=== PATIENT | male | born 1985 | race Caucasian/White ===

== ENCOUNTER 2018-05-02 19:26 | Emergency (ER) | payer OTHER ==
[2018-05-02 19:41] VITALS: BP 139/90; PULSE 103; TEMP 99.1; BMI 25.8
--- NOTE | 2018-05-02 20:36 | PDOC ---
History of Present Illness - General Chief Complaint: Redness To Affected Area Stated Complaint: BULLS EYE RASH ON BACK Time Seen by Provider: 05/02/18 19:36 - History of Present Illness Initial Comments: This otherwise healthy 33-year-old man presents with several day history of rash mid lower back and 3 day history of fever with myalgias. Patient was seen in urgent care yesterday and given Keflex with diagnosis of cellulitis. He presents because of continued symptoms. Patient does not recall any embedded tick or insect bite. He [place] in [place] and spends time outside. No history of Lyme disease or other tickborne illness. No recent travel. He has no known ALLERGIES Past History - Past Medical History Allergies/Adverse Reactions: Allergies Allergy/AdvReac Type Severity Reaction Status Date / Time No Known Allergies Allergy Verified 05/02/18 19:35 Home Medications: Ambulatory Orders Cephalexin [Keflex] 500 mg PO TID 05/02/18 Doxycycline Hyclate 100 mg PO BID #20 capsule 05/02/18 COPD: No - Suicide/Smoking/Psychosocial Hx Smoking History: Never smoked Hx Alcohol Use: Yes (OCCASIONAL) Drug/Substance Use Hx: No Substance Use Type: None Review of Systems - Review of Systems Able to Perform ROS?: Yes Comments:: 12 point review of systems is negative except for what is noted in the history of present illness *Physical Exam - Vital Signs Last Vital Signs Temp Pulse Resp BP Pulse Ox 99.1 F 103 H 16 139/90 99 05/02/18 19:34 05/02/18 19:34 05/02/18 19:34 05/02/18 19:34 05/02/18 19:34 - Physical Exam Comments: GENERAL: Adult male, alert and oriented 3, in no acute distress HEAD: Normal with no signs of trauma. EYES: PERRLA, EOMI, sclera anicteric, conjunctiva clear. ENT: Ears normal, nares patent, oropharynx clear without exudates. Dry mucous membranes. NECK: Normal range of motion, supple without lymphadenopathy, JVD, or masses. LUNGS: Breath sounds equal, clear to auscultation bilaterally. No wheezes, and no crackles. HEART:Regular rate and rhythm, normal S1 and S2 without murmur, rub or gallop. ABDOMEN:.normal bowel sounds No guarding,tenderness or rebound.No masses No distention. EXTREMITIES: Normal range of motion, no edema. No clubbing or cyanosis. No erythema, or tenderness. NEUROLOGICAL: Cranial nerves II through XII grossly intact. Normal speech. No focal neurological deficits. MUSCULOSKELETAL: Back non-tender to palpation, no CVA tenderness SKIN: 10 cm x 8 cm oval, erythematous, slightly raised lesion of the midline lower lumbar region; no vesicles or eschar noted No other rash seen ED Treatment Course - LABORATORY CBC & Chemistry Diagram: 05/02/18 20:45 05/02/18 20:45 Medical Decision Making - Medical Decision Making Because this patient clearly has ECM and febrile illness consistent with early tickborne disease, CBC/chemistry profile were examined to explore whether evidence of WBC or platelet abnormalities/aminotransferase elevation, suggesting erhlichiosus or babesiosis is present. Also, patient will get a liter of normal saline (he appears somewhat dehydrated on clinical exam) and 30 mg Toradol IV. CBC/chemistry profile is essentially normal except for elevation of hematocrit/ hemoglobin. Patient feels better after liter of normal saline and 30 mg of Toradol IV. Patient will be given doxycycline 100 mg by mouth now and prescription for doxycycline 100 mg twice a day for 10 days sent to his pharmacy. Patient should follow-up with his general doctor within the next 2-3 days. 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) - Discharge Dispostion Disposition: HOME Condition at time of disposition: Stable - Prescriptions Prescriptions: Doxycycline Hyclate 100 mg PO BID #20 capsule - Referrals Referrals: Rosa M Brooke MD [Primary Care Provider] - 3 days - Patient Instructions Printed Discharge Instructions: DI for Lyme Disease Additional Instructions: Stop Keflex Begin doxycycline 100 mg twice a day for 10 days Do not take doxycycline with dairy food; do not lie down within an hour after taking doxycycline Be careful to use sunscreen at all times while taking doxycycline No work for the next 3 days Follow-up with your doctor within the next 2-3 days Return to ER if you have persistent high fever or develop severe pain/vomiting - Post Discharge Activity Forms/Work/School Notes: Back to Work
[2018-05-02] MEDS ORDERED: SODIUM CHLORIDE 1,000 ML IV STA (20:37)
[2018-05-02] MEDS ORDERED: KETOROLAC TROMETHAMINE 30 MG/1 ML VIAL IVPUSH ONE (20:37)
[2018-05-02] MEDS ORDERED: KETOROLAC TROMETHAMINE 30 MG/1 ML VIAL ONE (20:54)
[2018-05-02 21:08] LABS: HEMATOCRIT 50.5 % (35.4-49); HEMOGLOBIN 17.3 GM/dl (11.7-16.9); MCH 30.3 pg (25.7-33.7); MCHC 34.2 g/dl (32.0-35.9); MEAN CELL VOLUME 88.5 fl (80-96); MEAN PLT VOLUME 8.2 fl (7.5-11.1); PLATELET COUNT 245 K/MM3 (134-434); RBC 5.71 M/mm3 (4.00-5.60); RDW 12.4 % (11.9-15.9)
[2018-05-02 21:21] LABS: ALBUMIN 4.3 g/dl (3.5-5.0); ALK PHOS 99 U/L (32-92); ANION GAP 8 (8-16); BILIRUBIN,TOTAL 0.6 mg/dl (0.2-1.0); BLOOD UREA NITROGEN 16 mg/dl (7-18); CALCIUM 9.5 mg/dl (8.4-10.2); CHLORIDE 101 mmol/L (98-107); CO2 25 mmol/L (22-28); CREATININE 1.1 mg/dl (0.6-1.3); GLUCOSE,RANDOM 86 mg/dl (74-106); POTASSIUM 4.3 mmol/L (3.5-5.1); SGOT/AST 26 U/L (10-42); SGPT/ALT 25 U/L (10-40); SODIUM 134 mmol/L (136-145); TOT PROT 7.8 g/dl (6.4-8.3)
[2018-05-02] MEDS ORDERED: DOXYCYCLINE HYCLATE 100 MG CAPSULE PO ONE ×2 (21:40→21:43)
== END 2018-05-02 21:57 | disposition home or self-care (01) ==
LOC: FER 19:26
PROC: 3E0233Z Introduction of Anti-inflammatory into Muscle, Percutaneous Approach (ICD-10-PCS; principal; 2018-05-02)
PROC: 3E0337Z Introduction of Electrolytic and Water Balance Substance into Peripheral Vein, Percutaneous Approach (ICD-10-PCS; 2018-05-02)
DX: A69.20 Lyme disease, unspecified (principal)
CPT/HCPCS: 36415; 80053; 85025; 86618; 99282-25; J7030